=== PATIENT | male | born 1955 | race Caucasian/White ===

== ENCOUNTER 2016-09-29 13:58 | Day surgery (SDC) | END 2016-09-29 15:15 | disposition home or self-care (01) | DX: S46.811D Strain of other muscles, fascia and tendons at shoulder and upper arm level, right arm, subsequent encounter (principal); X58.XXXD Exposure to other specified factors, subsequent encounter; Z53.9 Procedure and treatment not carried out, unspecified reason ==

== ENCOUNTER 2016-10-04 05:50 | Day surgery (SDC) | payer OTHER ==
[2016-10-03 11:15] VITALS: BMI 29.3
[2016-10-04] VITALS (17 sets, daily range): BP systolic 114–149; BP diastolic 66–83; PULSE 71–118; RESP 15–22; Ht 175.3 cm; Wt 88.3 kg
[~2016-10-04] VITALS: Ht 175.3 cm; Wt 88.3 kg
[2016-10-04] MEDS ORDERED: EPINEPHrine 1 MG/ML 30 ML INJ ONE (06:51)
[2016-10-04] MEDS ORDERED: PIOG30TA26 PO (06:53)
[2016-10-04] MEDS ORDERED: METO-448 PO (06:53)
[2016-10-04] MEDS ORDERED: METF1000 PO (06:53)
[2016-10-04] MEDS ORDERED: SIMV20TA PO (06:53)
[2016-10-04] MEDS ORDERED: OMEP20CA16 PO (06:53)
[2016-10-04] MEDS ORDERED: GLIM2TAB PO (06:53)
[2016-10-04] MEDS ORDERED: NEOSTIGMINE 3 MG/3 ML SYRINGE ONE (07:00)
[2016-10-04] MEDS ORDERED: LIDOCAINE 2% (SDV) 5 ML INJ ONE (07:00)
[2016-10-04] MEDS ORDERED: DESFLURANE 15 MIN ONE (07:00)
[2016-10-04] MEDS ORDERED: CLINDAMYCIN 900 MG/50 ML D5W IVPB IVPB ONE (07:00)
[2016-10-04] MEDS ORDERED: GLYCOPYRROLATE 0.4 MG INJ ONE (07:00)
[2016-10-04] MEDS ORDERED: ROCURONIUM 50 MG INJ ONE (07:00)
[2016-10-04] MEDS ORDERED: PROPOFOL 200 MG INJ ONE (07:00)
[2016-10-04] MEDS ORDERED: SUCCINYLCHOLINE CHLORIDE 100 MG/5 ML SYG IV ONE (07:00)
[2016-10-04] MEDS ORDERED: FENTAnyl 50 MCG/ML VIAL ONE (07:24)
[2016-10-04] MEDS ORDERED: ROPIVACAINE 0.2% 20 ML VIAL ONE (07:34)
[2016-10-04] MEDS ORDERED: MIDAZOLAM 1 MG/ML 2 ML INJ ONE (07:54)
--- NOTE | 2016-10-04 07:55 | HPN ---
Date/Time of Note Date/Time of Note DATE: 10/04/16 TIME: 07:55 Interval H&P Admission Note Pt. seen H&P reviewed: No system changes GEORGE MOTT MD Oct 04, 2016 07:55
--- NOTE | 2016-10-04 07:59 | PDOCDIS ---
Discharge Instructions CONDITION Patient Condition: Good ACTIVITY: Activity Restrictions: Do not operate Machinery Bathing Restrictions: Sponge Bath FOLLOW UP/APPOINTMENTS Appointments Dr. George Mott 5 days OTHER ORDERS: Other Orders: Sling R UE. May do pendulum exercises 2-3 times a day. Do not remove dressing SCHOOL/WORK RELEASE May return to School/Work on: Oct 09, 2016 GEORGE MOTT MD Oct 04, 2016 07:59
[2016-10-04] MEDS ORDERED: CLINDAMYCIN 600 MG/D5W (PMX) 50 ML IVPB ONE (08:12)
[2016-10-04] MEDS ORDERED: ALBUTEROL 0.5% (NEB) 2.5 MG/0.5 ML AMP HHN ONE (09:00)
[2016-10-04] MEDS ORDERED: METOCLOPRAMIDE 10 MG INJ IV PRN (09:00)
[2016-10-04] MEDS ORDERED: MEPERIDINE 25 MG INJ IV PRN (09:00)
[2016-10-04] MEDS ORDERED: FENTAnyl 50 MCG/ML VIAL IV PRN ×2 (09:00)
[2016-10-04] MEDS ORDERED: ONDANSETRON 4 MG INJ IV PRN (09:00)
[2016-10-04] MEDS ORDERED: HYDROmorphONE (0.2 MG/ML) 10ML SYG IV PRN ×3 (09:00)
[2016-10-04] MEDS ORDERED: DIPHENHYDRAMINE 50 MG INJ IV PRN (09:00)
[2016-10-04] MEDS ORDERED: BUPIVACAINE 0.5%/EPI (SDV) 30 ML INJ ONE (09:29)
--- NOTE | 2016-10-04 11:54 | OPR ---
DATE OF OPERATION: 10/04/2016 PREOPERATIVE DIAGNOSES: 1. Right shoulder rotator cuff tear. 2. Right shoulder biceps tendon tear. 3. Subacromial impingement. POSTOPERATIVE DIAGNOSES: 1. Right shoulder rotator cuff tear. 2. Right shoulder biceps tendon tear. 3. Subacromial impingement. PROCEDURE: 1. Right shoulder arthroscopy. 2. Rotator cuff repair. 3. Biceps tenodesis. 4. Subacromial decompression. SURGEON: Juaquin Mott MD [employer] REPA[employer] PULLMAN: None. ANESTHESIA: Interscalene block with general anesthesia. OPERATIVE FINDINGS: 1. Significantly deteriorated and shredded tear of the intra-articular portion of the biceps tendon . 2. Full-thickness tear of the supraspinatus extending to the infraspinatus tendon. 3. A large spur on the undersurface of the acromion. INDICATIONS FOR PROCEDURE: Mr. Bethel Medina is a 61-year-old male who has had progressive pain in t he right shoulder. Her has failed nonoperative treatment and now presents for the above listed proc edure. Risks and benefits were discussed. Risks including but not limited to infection, bleeding, blood clots, shoulder stiffness, retear, chronic pain, Emmanuel deformity, along with other medical, a nesthetic and surgical complications were discussed. Informed consent was obtained. DESCRIPTION OF THE PROCEDURE: The patient's correct extremity was identified in the preoperative ar ea. He was brought back to the operating room where he had interscalene block. He had endotracheal anesthesia. Preoperative antibiotics were administered and he was positioned in the beach chair po sition. All bony prominences were adequately padded. The right shoulder and upper extremity were p repped and draped in the standard sterile manner. Timeout was performed. I made a standard posteri or portal incision and introduced the arthroscope through the posterior portal incision. I did a di agnostic arthroscopy. The articular surfaces were intact. The biceps tendon had a significantly de teriorated and shredded tear through the intra-articular portion. The subscapular tendon did seem t o have a good insertion. The supraspinatus and infraspinatus tendons were fully torn with some mild retraction to mid humeral level. At this point, I debrided the footprint. I established anterolateral and lateral cannulas. I decid ed to tenodese of the biceps tendon. I passed a fiber tape around the biceps tendon and then used a SwiveLock to tenodese it in the bicipital groove. The biceps was well fixed. At this point, I tur lyndsey my attention to the rotator cuff. I decided to use a SpeedBridge technique from [employer] and I p ut 2 medial SwiveLock anchors. They went in subacromial spaces. , a large spur was found in t he undersurface of the acromion, which is taken off with a 5.5 oblong bur. At this point, I passed the sutures through the . One through the anterior part and one through the posterior part, an d I cut the sutures as though there would be 2 individual . I then crisscrossed them. I then put lateral or double-row SwiveLocks with the arm in abduction, compressing the very well, whi ch allowed for an excellent repair. I then went on the articular side and showed that the footprint was fully covered with the rotator c uff. At this point, I took all of my instruments, closed the portal sites with 3-0 Nylon. Dry ster ile dressings were applied. The patient was placed in an abduction sling. He was extubated and tra nsported to the recovery room in stable condition. Dictated By: JUAQUIN MOTT MD, RA/KEVIN Conf#: [id number] DID#: [id number]
== END 2016-10-04 11:45 | disposition home or self-care (01) ==
LOC: SDS 05:50
PROVIDERS: ATTEND Specialist
DX: M75.121 Complete rotator cuff tear or rupture of right shoulder, not specified as traumatic (principal); M75.41 Impingement syndrome of right shoulder; M66.821 Spontaneous rupture of other tendons, right upper arm; M19.90 Unspecified osteoarthritis, unspecified site; K21.9 Gastro-esophageal reflux disease without esophagitis; E11.9 Type 2 diabetes mellitus without complications; I10 Essential (primary) hypertension; Z88.0 Allergy status to penicillin; Z88.6 Allergy status to analgesic agent
CPT/HCPCS: 29826; 29827; 29828; 82962; 86850; 86900; 86901; C1713; J0171; J0330; J2250; J2710; J2795; J3010; Z7512; Z7610

== ENCOUNTER 2017-08-09 07:18 | Day surgery (SDC) | END 2017-08-09 13:00 | disposition home or self-care (01) ==